=== PATIENT | male | born 1975 | race Hispanic/Latino ===

== ENCOUNTER 2021-09-12 18:55 | Emergency (ER) | payer OTHER ==
[~2021-09-12] VITALS: Ht 190.5 cm; Wt 158.8 kg
[~2021-09-12 18:55] MED LIST: ASPIRIN81 MG PO; CRESTOR5 MG; GLIPIZIDE5 MG PO; JANUVIA; LISINOPRIL2.5 MG PO; NAPROXEN250 MG PO; ONGLYZA5 MG; Z.0.GLIPIZIDE10 MG PO; Z.1.METFORMIN HCL100 PO
[2021-09-12] MEDS ORDERED: KETOROLAC TROMETHAMINE 60 MG/2 ML VIAL IM ONE (19:45)
[2021-09-12] MEDS ORDERED: ULTRAM50 MG PO (20:01)
[2021-09-12] MEDS ORDERED: METHOCARBAMOL750 MG PO (20:01)
[2021-09-12] MEDS ORDERED: ULTRAM 50MG50 MG PO (20:04)
== END 2021-09-12 20:32 | disposition home or self-care (01) ==
LOC: ER 19:37
DX: M54.32 Sciatica, left side (principal); E78.00 Pure hypercholesterolemia, unspecified; Z95.5 Presence of coronary angioplasty implant and graft; Z98.84 Bariatric surgery status
CPT/HCPCS: 99282; J1885